=== PATIENT | female | born 1970 | race Caucasian/White ===

== ENCOUNTER → 2019-04-26 08:46 | Outpatient (CLI) | payer OTHER, SELFPAY ==
[2019-04-26 08:40] VITALS: BMI 38.6
--- NOTE | 2019-04-26 08:47 | RAD_ITS ---
EXAM DESCRIPTION: Left knee CLINICAL HISTORY: 49 years Female, PAIN WHILE WALKING. [facility] COMPARISON: None FINDINGS: [Studies of the left knee shows no evidence of fracture, dislocation, or bony destruction.] RAD/Knee 4 or More Views IMPRESSION: [Normal left knee.] Electronically Signed: Arnulfo Ruiz, at 13:51 EST Tel , Service support ,
== END ==
PROVIDERS: PCP Family Medicine; Referring Provider Physician Assistant; Visit Provider Physician Assistant
DX: M25.562 Pain in left knee (principal)
CPT/HCPCS: 73564